=== PATIENT | male | born 1955 | race Caucasian/White ===

== ENCOUNTER 2019-09-13 22:34 | Emergency (ER) | payer MEDICARE ==
[2019-09-13] MEDS ORDERED: PROMETHAZINE HCL 25 MG in 0.9 % SODIUM CHLORIDE 100ML 100 ML IVPB ONE (23:31)
[2019-09-13 23:54] LABS: ABSOLUTE NEUTROPHIL COUNT 8.11; BASO % 0.2 % (0-6); EOS % 2.9 % (0-6); GRAN % 66.2 % (47-80); HEMATOCRIT 45.6 % (42.0-52.0); HEMOGLOBIN 15.2 gm/dl (14.0-18.0); LYMPH % 23.3 % (16-45); MEAN CELL VOLUME 91.8 fl (81-97); MEAN CORPUSCULAR HEMOGLOBIN 30.6 pg (27-33); MEAN CORPUSCULAR HGB CONC 33.3 g/dl (32-36); MEAN PLATELET VOLUME 9.5 fl (7.4-10.4); MONO % 7.4 % (0-9); PLATELET COUNT 317 K/uL (130-400); RED BLOOD COUNT 4.97 M/uL (4.40-5.70); RED CELL DISTRIBUTION WIDTH 18.2 % (11.5-14.5); WHITE BLOOD COUNT W/O DIFF 12.3 K/uL (4.2-12.2)
[2019-09-14 00:03] LABS: BLOOD UREA NITROGEN 10 mg/dL (8-23); CREATININE 0.8 mg/dL (0.7-1.2); EST GLOMERULAR FILTRATION RATE > 60 mL/min
[2019-09-14 00:04] LABS: TOTAL PROTEIN 7.1 g/dL (6.6-8.7)
[2019-09-14 00:06] LABS: GLUCOSE,RANDOM 95 mg/dL (74-109)
[2019-09-14 00:08] LABS: ALCOHOL 0.182 g/dL (0-0.010); ALT/SGPT 18 U/L (<41)
[2019-09-14 00:09] LABS: ALB/GLOB RATIO 1.4 (1.1-1.8); ALBUMIN 4.2 g/dL (4.0-5.0); ALKALINE PHOSPHATASE 43 U/L (40-129); AST/SGOT 23 U/L (10.0-50.0)
--- NOTE | 2019-09-14 00:20 | Emergency Department Record ---
History of Present Illness - General Chief Complaint: Headache Migraine Stated Complaint: HEADACHE Time Seen by Provider: 09/13/19 23:21 Source: Patient, Family Mode of Arrival: Ambulatory Limitations: No limitations - History of Present Illness Initial Comments: pt has a l sided west for a month that is constant . he states he has a distant hx of migraines but this is different. he also has sinus pressure and drainage. he also has neck pain and when he pushes on his neck it helps thepain. he has a hx of a broken neck in the 70s, he has numbness in his l hand but that is old since his 'tia'. he has no n/v. pt has yellow sinus drainage MD Complaint: Headache -: Week(s) Onset Description: Gradual Location: Left Severity: Severe Severity scale (1-10): 8 Quality: Aching, Worst headache of life Consistency: Getting worse Improves With: Other Worsens With: Other Treatments Prior to Arrival: None - Related Data Home Medications Medication Instructions Recorded Confirmed Last Taken Albuterol Sulfate [Ventolin Hfa] puff IH 09/13/19 Unknown Atorvastatin Calcium 09/13/19 Unknown Fluticasone Propion/Salmeterol gm IH 09/13/19 09/13/19 Unknown [Advair Hfa 115-21 Mcg Inhaler] Previous Rx's Medication Instructions Recorded Azithromycin [Zithromax] 250 mg PO DAILY #4 tab 09/14/19 Allergies Allergy/AdvReac Type Severity Reaction Status Date / Time amitriptyline [From Elavil] AdvReac BODY ACHES Verified 09/13/19 22:54 gabapentin AdvReac BODY ACHES Verified 09/13/19 22:54 Travel Screening - Travel/Exposure Within Last 30 Days Have you traveled within the last 30 days?: No - Travel Symptoms Symptom Screening: Headache Review of Systems Reviewed: No additional complaints except as noted below Constitutional: Reports: As per HPI. Denies: Chills, Fever, Malaise, Night sweats, Weakness, Weight change Eyes: Reports: As per HPI. Denies: Eye discharge, Eye pain, Photophobia, Vision change ENT: Reports: As per HPI. Denies: Congestion, Dental pain, Ear pain, Epistaxis, Hearing loss, Throat pain Respiratory: Reports: As per HPI. Denies: Cough, Dyspnea, Hemoptysis, Stridor, Wheezes Cardiovascular: Reports: As per HPI. Denies: Arrhythmia, Chest pain, Dyspnea on exertion, Edema, Murmurs, Orthopnea, Palpitations, Paroxysmal nocturnal dyspnea, Rheumatic Fever, Syncope Endocrine: Reports: As per HPI. Denies: Fatigue, Heat or cold intolerance, Polydipsia, Polyuria Gastrointestinal: Reports: As per HPI. Denies: Abdominal pain, Constipation, Diarrhea, Hematemesis, Hematochezia, Melena, Nausea, Vomiting Genitourinary: Reports: As per HPI. Denies: Dysuria, Frequency, Hematuria, In continence, Retention, Testicular pain, Testicular mass, Urgency Musculoskeletal: Reports: As per HPI. Denies: Arthralgia, Back pain, Gout, Joint swelling, Myalgia, Neck pain Skin: Reports: As per HPI. Denies: Bruising, Change in color, Change in h air/nails, Lesions, Pruritus, Rash Neurological: Reports: As per HPI. Denies: Abnormal gait, Confusion, Headache, Numbness, Paresthesias, Seizure, Tingling, Tremors, Vertigo, Weakness Psychiatric: Reports: As per HPI. Denies: Anxiety, Auditory hallucinations, Depression, Homicidal thoughts, Suicidal thoughts, Visual hallucinations Hematological/Lymphatic: Reports: As per HPI. Denies: Anemia, Blood Clots, Easy bleeding, Easy bruising, Swollen glands Past Medical History - SOCIAL HISTORY Smoking Status: Current every day smoker Alcohol Use: Heavy Drug Use: Heavy Drug Use Detail:: Marijuana - RESPIRATORY Hx Respiratory Disorders: Yes Hx COPD: Yes - CARDIOVASCULAR Hx Cardio Disorders: Yes Hx Hypertension: Yes Comment:: high cholesterol - NEURO Hx Neuro Disorders: No - GI Hx GI Disorders: No - Hx Genitourinary Disorders: No - ENDOCRINE Hx Endocrine Disorders: No - MUSCULOSKELETAL Hx Musculoskeletal Disorders: Yes Hx Back Injury: Yes (neck fracture) - PSYCH Hx Psych Problems: Yes - HEMATOLOGY/ONCOLOGY Hx Hematology/Oncology Disorders: No Family Medical History Any Significant Family History?: No Family Hx Comment (NOT TO BE USED IN PLACE OF ITEMS BELOW): denies Physical Exam - General General Appearance: Alert, Oriented x3, Cooperative, Mild distress - Head Head exam: Normal inspection - Eye Eye exam: Normal appearance, PERRL, EOMI Pupils: Normal accommodation - ENT ENT exam: Normal exam, Mucous membranes moist, Normal external ear exam, Normal orophraynx Ear exam: Normal external inspection. negative: External canal tenderness Nasal Exam: Sinus tenderness. negative: Discharge Mouth exam: Normal external inspection, Tongue normal Teeth exam: Normal inspection. negative: Dental caries Throat exam: Normal inspection. negative: Tonsillar erythema, Tonsillar exudate - Neck Neck exam: Normal inspection, Full ROM. negative: Tenderness - Respiratory Respiratory exam: Normal lung sounds bilaterally. negative: Respiratory dist ress - Cardiovascular Cardiovascular Exam: Regular rate, Normal rhythm, Normal heart sounds - GI/Abdominal GI/Abdominal exam: Soft, Normal bowel sounds. negative: Tenderness - Rectal Rectal exam: Deferred - exam: Deferred - Extremities Extremities exam: Normal inspection, Full ROM, Normal capillary refill. negative: Tenderness - Back Back exam: Reports: Normal inspection, Full ROM. Denies: Muscle spasm, Rash noted, Tenderness - Neurological Neurological exam: Alert, CN II-XII intact, Normal gait, Oriented X3 - Psychiatric Psychiatric exam: Normal affect, Normal mood - Skin Skin exam: Dry, Intact, Normal color, Warm Course Vital Signs 09/13/19 22:43 Temperature 98.0 F Pulse Rate [ 101 H Left] Respiratory 18 Rate Blood Pressure 149/101 [Left Arm] Pulse Ox 98 Medical Decision Making - Lab Data Result diagrams: 09/13/19 23:40 09/13/19 23:40 Lab Results 09/13/19 09/13/19 Range/Units 23:40 23:40 WBC 12.3 H (4.2-12.2) K/uL RBC 4.97 (4.40-5.70) M/uL Hgb 15.2 (14.0-18.0) gm/dl Hct 45.6 (42.0-52.0) % MCV 91.8 (81-97) fl MCH 30.6 (27-33) pg MCHC 33.3 (32-36) g/dl RDW 18.2 H (11.5-14.5) % Plt Count 317 (130-400) K/uL MPV 9.5 (7.4-10.4) fl Gran % 66.2 (47-80) % Lymphocytes % 23.3 (16-45) % Monocytes % 7.4 (0-9) % Eosinophils % 2.9 (0-6) % Basophils % 0.2 (0-6) % Absolute Neutrophils 8.11 Sodium 139 (136-145) mmol/L Potassium 3.9 (3.4-4.5) mmol/L Chloride 102 (98-107) mmol/L Carbon Dioxide 22.0 (22-29) mmol/L Anion Gap 15.0 (7-16) BUN 10 (8-23) mg/dL Creatinine 0.8 (0.7-1.2) mg/dL Estimated GFR > 60 mL/min Random Glucose 95 (74-109) mg/dL Calcium 9.1 (8.8-10.2) mg/dL Total Bilirubin 0.20 (0.2-1.0) mg/dL AST 23 (10.0-50.0) U/L ALT 18 (<41) U/L Alkaline Phosphatase 43 (40-129) U/L Total Protein 7.1 (6.6-8.7) g/dL Albumin 4.2 (4.0-5.0) g/dL Globulin 2.9 (1.4-4.8) gm/dL Albumin/Globulin Ratio 1.4 (1.1-1.8) Ethyl Alcohol 0.182 H (0-0.010) g/dL Disposition Disposition: Discharge Clinical Impression: Sinusitis Qualifiers: Sinusitis location: pansinusitis Chronicity: acute Recurrence: non-recurrent Qualified Code(s): J01.40 - Acute pansinusitis, unspecified Headache Qualifiers: Headache type: unspecified Headache chronicity pattern: acute headache Intractability: intractable Qualified Code(s): R51 - Headache Disposition: Home, Self-Care Condition: (1) Good Instructions: Acute Headache (ED), Sinusitis (ED), Nasal Rinse (ED), Warm Compress or Soak (ED) Additional Instructions: follow up with family doctor. return sooner if worse. Prescriptions: Azithromycin [Zithromax] 250 mg PO DAILY #4 tab Forms: Patient Portal Access Quality - Quality Measures Quality Measures: N/A - Blood Pressure Screening Does Patient Have Any of the Following: No Blood Pressure Classification: Hypertensive Reading Systolic Measurement: 149 Diastolic Measurement: 101 Screening for High Blood Pressure: < First Hypertensive BP, F/U Documented > [G8950] First Hypertensive Follow-up Interventions: Follow-up with rescreen GT 1 day and LT 4 weeks.
--- NOTE | 2019-09-14 01:28 | CT SCAN REPORT ---
EXAMINATION: CT Cervical Spine without IV Contrast EXAM DATE: 09/14/2019 1:17 AM TECHNIQUE: Standard protocol cervical spine CT imaging was performed without intravenous contrast. Co kylie and sagittal images were reconstructed. INDICATION: 4wk west and neck pain COMPARISON: None ENCOUNTER: Not applicable FINDINGS: Mild anterolisthesis at C3-4 and C4-5. Severe disc height loss at C5-6 and C6-7. There is moderate to severe facet arthropathy at multiple levels bilaterally which is felt to be responsible for the ante rolisthesis. The spinal canal is patent. The craniocervical junction and odontoid are intact. The pre vertebral soft tissues are normal. There is no fracture. IMPRESSION: Moderate to severe degenerative changes throughout the cervical spine with no evidence of acute proce ss. Dictated by: Troy Durant DO on 09/14/2019 1:21 AM. .
--- NOTE | 2019-09-14 01:33 | CT SCAN REPORT ---
EXAMINATION: CT Head without IV Contrast EXAM DATE: 09/14/2019 1:18 AM TECHNIQUE: Standard protocol CT images of the head were obtained without intravenous contrast. Cotton l and sagittal reconstructed images were created. INDICATION: 4wk west and neck pain COMPARISON: None HAND DOMINANCE: Unknown. ENCOUNTER: Not applicable FINDINGS: * The ventricles are normal in size and symmetric. * Brain attenuation is normal. * The velasco-white interface is intact. * There is no sulcal effacement. * There is no intracranial hemorrhage. * There is no intracranial mass or shift of midline. * The calvarium is intact. * The subcutaneous tissues are normal. * The mastoid air cells and middle ears are well aerated. * The paranasal sinuses are well aerated. There is a mucous retention cyst in the left side of the s phenoid sinus and there is mild mucosal thickening in the ethmoid air cells. There is likely nasal po lyposis. * The orbital contents are normal. IMPRESSION: 1. No evidence of acute intracranial process 2. Chronic appearing mucosal sinus disease 3. Likely nasal polyposis Dictated by: Troy Durant DO on 09/14/2019 1:27 AM. .
[2019-09-14] MEDS ORDERED: AZITHROMYCIN 500 MG TABLET PO ONE (01:54)
== END 2019-09-14 02:06 | disposition home or self-care (01) ==
LOC: ER 22:34
DX: J01.40 Acute pansinusitis, unspecified (principal); R51 Headache; M54.2 Cervicalgia; J44.9 Chronic obstructive pulmonary disease, unspecified; F17.210 Nicotine dependence, cigarettes, uncomplicated; I10 Essential (primary) hypertension
CPT/HCPCS: 70450; 72125; 80053; 80320; 85025; 96365; 99284; J2550